=== PATIENT | female | born 1990 | race Two or more races ===

== ENCOUNTER → 2023-08-02 | Outpatient (CLI) | payer BC ==
[2023-08-02 10:12] VITALS: BP 109/74; PULSE 94; RESP 16; TEMP 98.2
--- NOTE | 2023-08-02 10:46 | P.HPOB ---
History of Present Illness H&P Date: 08/02/23 Chief Complaint: The patient is here for her routine gynecologic exam. This is a 32-year-old 012 with an LMP of 07/03/2023. The patient is here to establish with this office. Her last pelvic exam was about 1 year ago after the of her 1-year-old child. Menstrual periods have come back about 2 months ago. She is weaning from breast-feeding but still does produce some breast milk. She is without gynecologic complaints. Her is status post vasectomy. Review of Systems She has lost about 15 pounds over the past year and this was after childbirth one year ago. She denies respiratory or cardiac problems. 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 History of Any Multi-Drug Resistant Organisms: Unobtainable Past Surgical History: Breast Surgery Additional Past Surgical History / Comment(s): FIBROADENOMA REMOVED LEFT BREAST 2015 Past Anesthesia/Blood Transfusion Reactions: No Reported Reaction Past Psychological History: No Psychological Hx Reported Smoking Status: Never smoker Past Alcohol Use History: Rare (2 drinks per year.) Past Drug Use History: None Reported Additional History: She has been since 2019. She is originally from [facility]. She is a homemaker. - Past Family History Mother Additional Family Medical History / Comment(s): Circulation problems in her legs. No family history of cancer of the uterus, ovaries, colon, or breasts. Father Family Medical History: Unable to Obtain Medications and Allergies Home Medications Medication Instructions Recorded Confirmed Type Albuterol Inhaler [Ventolin Hfa 1 puff INHALATION DIRECTED 08/02/23 08/02/23 History Inhaler] Allergies Allergy/AdvReac Type Severity Reaction Status Date / Time No Known Allergies Allergy Unverified 08/02/23 10:05 Exam Vital Signs Temp Pulse Resp BP Pulse Ox 08/02/23 10:06 98.2 F 94 16 109/74 98 Intake and Output 08/01/23 08/02/23 08/02/23 22:59 06:59 14:59 Other: Weight 76.204 kg Height 5 feet 4 inches, weight 168 pounds, BMI 28.8. This is a well-developed well-nourished female who is alert and oriented times 3 in no acute distress. HEENT: Within normal limits. NECK: Supple without mass or thyromegaly. CHEST AND LUNGS: Clear to auscultation. HEART: Regular rate and rhythm. BREASTS: Are without mass. A small amount of breast milk was noted at the right nipple upon doing the examination. AXILLARY EXAM: Negative for adenopathy. BACK: Negative for CVA tenderness. ABDOMEN: Soft, nontender, without palpable masses. PELVIC EXAM: Normal external genitalia. Cervix and vagina appear normal. There is a mild ectropian without lesions. There is no unusual discharge. There is no evidence of prolapse. The uterus is midposition, nongravid size and nontender. There are no palpable adnexal masses or tenderness. RECTAL EXAM: Deferred. EXTREMITIES: Nontender. IMPRESSION: 1. 32-year-old female whose is status post vasectomy, with normal gynecologic exam. 2. Currently weaning from breast-feeding, still lactating. PLAN: 1. Pap smear cotest was performed. 2. Self breast awareness was discussed with the patient. We have also discussed symptoms associated with inflammatory breast cancer. 3. She was advised to return in one year for her annual well woman exam.
== END ==
LOC: WWCWWP 09:57
PROVIDERS: ATTEND Obstetrics & Gynecology
DX: Z01.419 Encounter for gynecological examination (general) (routine) without abnormal findings (principal)

== ENCOUNTER → 2024-08-21 | Outpatient (CLI) | payer BC ==
[2024-08-21 13:14] VITALS: BP 117/78; PULSE 89; RESP 16; TEMP 97.7
--- NOTE | 2024-08-21 13:53 | P.HPOB ---
History of Present Illness H&P Date: 08/21/24 Chief Complaint: The patient is here for her routine gynecologic exam. This is a 34-year-old -0-1-2 with an LMP of approximately 08/07/2024. Patient's is status postvasectomy. The patient states she developed pain with urination. She states it is usually brief and just with the start of her urinary flow. She denies urinary frequency or urinary urgency. She also denies flank pain or fever. She has been experiencing some right pelvic pains also. These symptoms have only been with her for about 1 to 2 days. I also spoke with her by phone. He was recently seen for urinary frequency, urgency, and hematuria. He was found to have a UTI and was treated with cephalexin and was started on this 3 days ago and is still taking the medication now. He states his symptoms have resolved. He states they are in a monogamous relationship. They were last sexually active about 5 to 6 days ago. Review of Systems The patient has gained 8 pounds over the last year. She denies respiratory, cardiac, or G.I. problems. : See the HPI. 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 History of Any Multi-Drug Resistant Organisms: Unobtainable Past Surgical History: Breast Surgery Additional Past Surgical History / Comment(s): FIBROADENOMA REMOVED LEFT BREAST 2015 Past Anesthesia/Blood Transfusion Reactions: No Reported Reaction Past Psychological History: No Psychological Hx Reported Smoking Status: Never smoker Past Alcohol Use History: Rare Past Drug Use History: None Reported Additional History: She has been since 2019. She is a homemaker. - Past Family History Mother Additional Family Medical History / Comment(s): Circulation problems in her legs. No family history of cancer of the uterus, ovaries, colon, or breasts. Father Family Medical History: Unable to Obtain Medications and Allergies Home Medications Medication Instructions Recorded Confirmed Type Albuterol Inhaler [Ventolin Hfa 1 puff INHALATION DIRECTED 08/02/23 08/21/24 History Inhaler] Montelukast [Singulair] 10 mg PO DAILY 08/21/24 08/21/24 History Allergies Allergy/AdvReac Type Severity Reaction Status Date / Time No Known Allergies Allergy Unverified 08/21/24 13:02 Exam Vital Signs Temp Pulse Resp BP Pulse Ox 08/21/24 13:07 97.7 F 89 16 117/78 97 Intake and Output 08/20/24 08/21/24 08/21/24 22:59 06:59 14:59 Other: Weight 79.832 kg This is a well-developed well-nourished female who is alert and oriented times 3 in no acute distress. HEENT: Within normal limits. NECK: Supple without mass or thyromegaly. CHEST AND LUNGS: Clear to auscultation. HEART: Regular rate and rhythm. BREASTS: Are without mass or discharge. AXILLARY EXAM: Negative for adenopathy. BACK: Negative for CVA tenderness. ABDOMEN: Soft, without palpable masses. There is mild right lower quadrant tenderness without rebound tenderness PELVIC EXAM: Normal external genitalia. Cervix and vagina appear normal. There is small amount of mucousy discharge which is slightly yellow in color without odor. There is no cervical motion tenderness. There is no evidence of prolapse. The uterus is midposition, nongravid size and nontender. There are no palpable adnexal masses,, but there is mild right adnexal tenderness. RECTAL EXAM: negative for mass or tenderness. EXTREMITIES: Nontender. IMPRESSION: 1. 34-year-old female whose is status post vasectomy with acute dysuria and right pelvic pains during the past 1 to 2 days. This may or may not be related to her 's current UTI which is being treated. Differential diagnosis would include acute cystitis, ruptured ovarian cyst, GC, chlamydia, and at this time I doubt appendicitis based on no GI symptoms. Possible physiologic discharge or possible semen related to recent sexual activity. PLAN: 1. Pap smear was deferred since she had a negative Pap smear cotest on 08/02/2023. 2. Urine has been obtained for urinalysis and culture with sensitivities. 3. GC and Chlamydia testing was obtained from the cervix. 4. She will be empirically treated with Macrobid twice daily x 7 days.'s are not improving, consider pelvic ultrasound. Consider further evaluation for appendicitis if she is having worsening symptoms, especially if he develops GI symptoms. Electronic prescription will be sent to [facility] on [facility]. 5. If symptoms improve, she will return in 1 year, and as needed.
== END ==
LOC: WWCWWP 12:26
PROVIDERS: ATTEND Obstetrics & Gynecology
DX: Z01.419 Encounter for gynecological examination (general) (routine) without abnormal findings (principal); Z87.440 Personal history of urinary (tract) infections